=== PATIENT | female | born 1970 | race Caucasian/White ===

== ENCOUNTER 2018-03-03 09:27 | Emergency (ER) | payer OTHER | END 2018-03-03 10:49 | disposition home or self-care (01) | LOC: ER 09:27 | DX: K02.9 Dental caries, unspecified (principal); K04.7 Periapical abscess without sinus; I10 Essential (primary) hypertension; E78.00 Pure hypercholesterolemia, unspecified; G43.909 Migraine, unspecified, not intractable, without status migrainosus; Z98.51 Tubal ligation status; Z88.3 Allergy status to other anti-infective agents | CPT/HCPCS: 99283 ==